=== PATIENT | female | born 1985 | race Caucasian/White ===

== ENCOUNTER 2019-03-10 17:20 | Inpatient (IN) | payer BC, OTHER ==
[2019-03-10] MEDS ORDERED: OXYTOCIN 20 UNITS in 0.9% NS 20 UNIT/1,000 ML INFUS.BAG IV ONE ×2 (20:14→22:08)
[2019-03-10] MEDS ORDERED: LIDOCAINE HCL 1% PRESERVATIVE FREE - 30ML VIAL ONE (20:31)
--- NOTE | 2019-03-10 20:46 | HP ---
Past Medical History - Admission History of Present Illness: 33 yo @ 37 4/7 wks by first trimester ultrasound, EDC 03/27/2019 complicated by: 1. Preeclampsia in prior with induction at 35 weeks On ASA this Normal BPs this 2. AMA - reassuring NIPT, NT and AFP 3. Varicella non-immune Patient presents with chief complaint of contractions that started at 1020 this AM. She was seen in the office and found to be 3 cm dilated. She reports movement, denies leakage of fluid or vaginal bleeding. History Source: Patient Limitations to Obtaining History: No Limitations - Past Medical History Cardiovascular: No: HTN Pulmonary: No: Asthma ...: 3 ...Para: 1 ...Term: 0 ...: 0 ...Spon : 0 ...Induced : 1 ...LMP: 06/22/18 ... Weeks Gestation by Dates: 37.2 ...EDC by Dates: 03/29/19 ...EDC by Sono: 03/29/19 - Past Surgical History Past Surgical History: Yes: None Hx Myomectomy: No Hx Transabdominal Cerclage: No - Smoking History Smoking history: Never smoked Have you smoked in the past 12 months: No - Alcohol/Substance Use Hx Alcohol Use: No - Social History History of Recent Travel: No Home Medications - Allergies Allergies/Adverse Reactions: Allergies Allergy/AdvReac Type Severity Reaction Status Date / Time No Known Allergies Allergy Verified 03/10/19 18:23 - Home Medications Home Medications: Ambulatory Orders Vit/Iron Fum/Folic AC [ Tablet] 1 tablet PO DAILY 07/11/15 Aspirin [Children's Aspirin] 81 mg PO DAILY 03/10/19 Family Medical History Family History: Denies Review of Systems - Review of Systems Constitutional: reports: No Symptoms Cardiovascular: reports: No Symptoms Respiratory: reports: No Symptoms Gastrointestinal: reports: No Symptoms Genitourinary: reports: No Symptoms Musculoskeletal: reports: No Symptoms Integumentary: reports: No Symptoms Neurological: reports: No Symptoms Hematology/Lymphatic: reports: No Symptoms Psychiatric: reports: No Symptoms Physical Exam - Maternity Vital Signs: Vital Signs Temperature 98.2 F 03/10/19 18:10 Pulse Rate 82 03/10/19 18:10 Respiratory Rate 18 03/10/19 18:10 Blood Pressure 120/74 03/10/19 18:10 O2 Sat by Pulse Oximetry (%) Constitutional: Yes: Well Nourished, No Distress, Calm Lungs: Clear to auscultation - Abdominal Exam/OB Number of Fetuses: Single Presentation: Vertex Contractions: Yes Regularity: Regular Category: I - Physical Exam Psychiatric: Yes: Alert, Oriented - Labs Lab Results: PNL: A positive, antibody negative; RPR NR; HIV negative; HBsAg neg; HCV negative; GCT WNL; GBS negative Hemorrhage Risk Assessment - Risk Factors Medium Risk Factors: Yes: None High Risk Factors: Yes: None Risk Score: 1 Risk Level: Medium Risk Assessment/Plan 33 yo @ 37 wks active labor 1. Admit to L&D, consents reviewed and signed 2. Routine labs collected and sent 3. GBS negative 4. Will proceed with expectant management
[2019-03-10] MEDS ORDERED: ACETAMINOPHEN 325 MG TABLET (FP) ONE (21:00)
[2019-03-10] MEDS ORDERED: IBUPROFEN 600 MG TABLET (FP) PO ONE (21:01)
[2019-03-10] MEDS: IBUPROFEN 600 MG TABLET (FP) PO PRN (21:10)
[2019-03-10] MEDS: ACETAMINOPHEN 325 MG TABLET (FP) PO PRN (21:10)
--- NOTE | 2019-03-10 21:13 | PN ---
Delivery - Delivery Vaginal Delivery: No Problems Type of Anesthesia: None Episiotomy/Laceration: 1st degree EBL (cc): 300 Delivery, Single - Stages of Labor Date 1st Stage Initiatied: 03/10/19 Time 1st Stage Initiated: 10:20 Date 2nd Stage Initiated: 03/10/19 Time 2nd Stage Initiated: 20:15 Date of Delivery: 03/10/19 Time of Delivery: 20:28 Date Placenta Delivered: 03/10/19 Time Placenta Delivered: 20:40 Placenta: Yes: Spontaneous - Condition of Infant Gender: Female Position: Left, OA Total Hours ROM (Hrs/Mins): 25 minutes - 1 Minute Total Score: 9 5 Minutes Total Score: 9 Remarks - Remarks Remarks: Patient progressed to fully dilated and at 2027 via delivered a viable female infant in SUSAN position, APGARs 9,9. Weight and length unknown at this time. Head delivered spontaneously followed by shoulders and body without difficulty. Infant with spontaneous cry and placed on mother's abdomen. Nose and mouth was bulb suctioned. Cord was clamped and cut. Perineum and vagina examined, a first degree laceration was noted and repaired in the usual fashion. Placenta was delivered spontaneously and intact. 20 units of pitocin in 1 L IVF was given. All counts correct x 2. Mother and infant stable in LDR. EBL 300cc.
[2019-03-10] MEDS ORDERED: BISACODYL 10 MG SUPP.RECT RC PRN (21:14)
[2019-03-10] MEDS ORDERED: METHYLERGONOVINE MALEATE 0.2 MG/1 ML AMP IM PRN (21:14)
[2019-03-10] MEDS ORDERED: WITCH HAZEL 50% (TUCKS) 40 PAD/JAR PAD TP PRN (21:14)
[2019-03-10] MEDS ORDERED: BENZOCAINE 28 GM HEMORRHOIDAL OINTMENT TP PRN (21:14)
[2019-03-10] MEDS ORDERED: BENZOCAINE 20% 57 GM BOTTLE TP PRN (21:14)
[2019-03-10] MEDS ORDERED: OXYTOCIN 20 UNITS in 0.9% NS 20 UNIT/1,000 ML INFUS.BAG IV SCH (21:15)
[2019-03-10 21:28] LABS: BASO % 0.1 % (0-2.0); EOS % 0.2 % (0-4.5); HEMATOCRIT 30.6 % (32.4-45.2); HEMOGLOBIN 9.9 GM/dL (10.7-15.3); MCH 27.5 pg (25.7-33.7); MCHC 32.4 g/dl (32.0-36.0); MEAN CELL VOLUME 85.1 fl (80-96); MEAN PLT VOLUME 9.3 fl (7.5-11.1); MONO % 4.6 % (3.8-10.2); NEUT % 84.1 % (42.8-82.8); PLATELET COUNT 208 K/MM3 (134-434); RDW 13.3 % (11.6-15.6); WHITE BLOOD COUNT 13.1 K/mm3 (4.0-10.0)
[2019-03-10 21:35] VITALS: BMI 29.2
[2019-03-10 21:45] LABS: BLOOD UREA NITROGEN 5.3 mg/dL (7-18); CALCIUM 8.1 mg/dL (8.5-10.1); CREATININE 0.8 mg/dL (0.55-1.3); POTASSIUM 3.2 mmol/L (3.5-5.1)
[2019-03-10 21:54] LABS: INR 1.01 (0.83-1.09); PROTHROMBIN TIME (PATIENT) 11.9 SEC (9.7-13.0)
[2019-03-10 21:57] LABS: ACTIVATED PTT 24.9 SECONDS (25.2-36.5)
--- NOTE | 2019-03-11 07:39 | PN ---
Post Progress Note - Subjective Subjective: Patient without acute complaints. Reports tolerating oral intake without nausea or vomiting. Ambulating without dizziness. Denies fevers or chills. Pain well controlled with oral pain medication. without difficulty. Passing flatus. Post Day: 1 Type of Delivery: Vital Signs: Vital Signs Temperature 98.4 F 03/11/19 06:00 Pulse Rate 70 03/11/19 06:00 Respiratory Rate 20 03/11/19 06:00 Blood Pressure 110/77 03/11/19 06:00 O2 Sat by Pulse Oximetry (%) Breast Exam: Yes: Soft Uterus: Yes: Fundus Firm, Fundus below umbilicus Abdomen/GI: Yes: Abdomen soft, Abdominal Distention, Passing flatus, Tolerating PO. No: Tender Lochia: Yes: Rubra Lochia, amount: Moderate Extremities: Yes: Calves non-tender, Edema (trace) Activity: Ambulating - Labs Labs: CBC WBC 13.1 K/mm3 (4.0-10.0) H 03/10/19 21:05 RBC 3.60 M/mm3 (3.60-5.2) 03/10/19 21:05 Hgb 9.9 GM/dL (10.7-15.3) L 03/10/19 21:05 Hct 30.6 % (32.4-45.2) L D 03/10/19 21:05 MCV 85.1 fl (80-96) 03/10/19 21:05 MCH 27.5 pg (25.7-33.7) D 03/10/19 21:05 MCHC 32.4 g/dl (32.0-36.0) 03/10/19 21:05 RDW 13.3 % (11.6-15.6) 03/10/19 21:05 Plt Count 208 K/MM3 (134-434) D 03/10/19 21:05 MPV 9.3 fl (7.5-11.1) D 03/10/19 21:05 Absolute Neuts (auto) 11.0 K/mm3 (1.5-8.0) H 03/10/19 21:05 Neutrophils % 84.1 % (42.8-82.8) H 03/10/19 21:05 Lymphocytes % 11.0 % (8-40) D 03/10/19 21:05 Monocytes % 4.6 % (3.8-10.2) 03/10/19 21:05 Eosinophils % 0.2 % (0-4.5) 03/10/19 21:05 Basophils % 0.1 % (0-2.0) 03/10/19 21:05 Nucleated RBC % 0 % (0-0) 03/10/19 21:05 Assessment/Plan 33 yo PPD # 1 s/p , afebrile, vital signs stable, doing well 1. Continue routine care. 2. Follow up AM CBC 3. Rh positive status, no rhogam indicated. 4. Encourage ambulation 5. Continue oral pain medication 6. Anticipate discharge home day #2
--- NOTE | 2019-03-11 07:41 | DS ---
Physical Exam-ADMISSIONS SPECIALIST Vital Signs: Vital Signs Temperature 98.4 F 03/11/19 06:00 Pulse Rate 70 03/11/19 06:00 Respiratory Rate 20 03/11/19 06:00 Blood Pressure 110/77 03/11/19 06:00 O2 Sat by Pulse Oximetry (%) Labs: CBC, BMP 03/10/19 21:05 03/10/19 21:05 Delivery - Delivery Vaginal Delivery: No Problems Type of Anesthesia: Local Episiotomy/Laceration: 1st degree EBL (cc): 300 Delivery, Single - Stages of Labor Date 1st Stage Initiatied: 03/10/19 Time 1st Stage Initiated: 10:20 Date 2nd Stage Initiated: 03/10/19 Time 2nd Stage Initiated: 20:15 Date of Delivery: 03/10/19 Time of Delivery: 20:28 Time Placenta Delivered: 20:40 Placenta: Yes: Spontaneous - 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 Present: No Infant Gender: Female Weight: 7 lb 4 oz Position: Left, OA Total Hours ROM (Hrs/Mins): 25 minutes - 1 Minute Total Score: 9 5 Minutes Total Score: 9 - [place] Feeding Plan Initial Plan: Exclusive throughout hospitalization Discharge Summary Problems reviewed: Yes Reason For Visit: LABOR Procedures: Principal: Vaginal delivery Hospital Course: Patient admitted in active labor, pushed to deliver viable female patient fulfilled all criteria for discharge home PPD # 2 Condition: Good - Instructions Referrals: Rell Henderson MD [Staff Physician] - Disposition: HOME - Home Medications Comprehensive Discharge Medication List: Ambulatory Orders Vit/Iron Fum/Folic AC [ Tablet] 1 tablet PO DAILY 07/11/15 Aspirin [Children's Aspirin] 81 mg PO DAILY 03/10/19
[2019-03-11 08:45] LABS: BASO % 0.3 % (0-2.0); EOS % 0.2 % (0-4.5); HEMATOCRIT 29.1 % (32.4-45.2); HEMOGLOBIN 9.7 GM/dL (10.7-15.3); LYMPH % 13.6 % (8-40); MCHC 33.2 g/dl (32.0-36.0); MEAN CELL VOLUME 84.2 fl (80-96); MEAN PLT VOLUME 9.3 fl (7.5-11.1); MONO % 6.4 % (3.8-10.2); NEUT % 79.5 % (42.8-82.8); PLATELET COUNT 215 K/MM3 (134-434); RBC 3.45 M/mm3 (3.60-5.2); RDW 13.4 % (11.6-15.6); WHITE BLOOD COUNT 13.3 K/mm3 (4.0-10.0)
[2019-03-11] MEDS: ACETAMINOPHEN 325 MG TABLET (FP) PO PRN ×2 (16:50→22:03)
[2019-03-11] MEDS: IBUPROFEN 600 MG TABLET (FP) PO PRN ×2 (16:51→22:03)
[2019-03-11] MEDS ORDERED: SENNOSIDES/DOCUSATE COMBO (SENNA PLUS) TABLET (UD) PO PRN (22:00)
--- NOTE | 2019-03-12 08:17 | DS ---
Physical Exam-DENTURE PROCESSOR Vital Signs: Vital Signs Temperature 97.7 F 03/11/19 21:43 Pulse Rate 69 03/11/19 21:43 Respiratory Rate 18 03/11/19 21:43 Blood Pressure 111/74 03/11/19 21:43 O2 Sat by Pulse Oximetry (%) Constitutional: Yes: Well Nourished, No Distress, Calm Eyes: Yes: WNL, Conjunctiva Clear, EOM Intact HENT: Yes: WNL, Atraumatic, Normocephalic Neck: Yes: WNL, Supple, Trachea Midline Cardiovascular: Yes: WNL, Regular Rate and Rhythm Respiratory: Yes: WNL, Regular, CTA Bilaterally Gastrointestinal: Yes: WNL ...Rectal Exam: Yes: WNL Renal/: Yes: WNL ....Post : Yes: Uterus firm, Uterus non-tender, Slight lochia rubra Breast(s): Yes: WNL Musculoskeletal: Yes: WNL Extremities: Yes: WNL Edema: No Integumentary: Yes: WNL Neurological: Yes: WNL, Alert, Oriented ...Motor Strength: WNL Psychiatric: Yes: WNL, Alert, Oriented Labs: CBC, BMP 03/11/19 07:20 03/10/19 21:05 Delivery - Delivery Vaginal Delivery: No Problems Type of Anesthesia: Local Episiotomy/Laceration: 1st degree EBL (cc): 300 Delivery, Single - Stages of Labor Date 1st Stage Initiatied: 03/10/19 Time 1st Stage Initiated: 10:20 Date 2nd Stage Initiated: 03/10/19 Time 2nd Stage Initiated: 20:15 Date of Delivery: 03/10/19 Time of Delivery: 20:28 Time Placenta Delivered: 20:40 Placenta: Yes: Spontaneous - Condition of Project Management Intern/Hand Binder Stripper Present: No Infant Gender: Female Weight: 7 lb 4 oz Position: Left, OA Total Hours ROM (Hrs/Mins): 25 minutes - 1 Minute Total Score: 9 5 Minutes Total Score: 9 - [place] Feeding Plan Initial Plan: Exclusive throughout hospitalization Discharge Summary Problems reviewed: Yes Reason For Visit: LABOR Current Active Problems Vaginal delivery (Acute) Procedures: Principal: Hospital Course: Patient admitted in active labor, pushed to deliver viable female infant patient fulfilled all criteria for discharge home PPD # 2 Condition: Good - Instructions Diet, Activity, Other Instructions: regular diet, follow uo office 4 weeks, if fever, heavy bleeding, pain call md Referrals: Rell Henderson MD [Staff Physician] - Disposition: HOME - Home Medications Comprehensive Discharge Medication List: Ambulatory Orders Vit/Iron Fum/Folic AC [ Tablet] 1 tablet PO DAILY 07/11/15 Aspirin [Children's Aspirin] 81 mg PO DAILY 03/10/19 Ibuprofen [Motrin -] 600 mg PO TID #21 tablet 03/11/19
[2019-03-12 09:16] VITALS: BP 112/76; PULSE 84; TEMP 98
[2019-03-12] MEDS: ACETAMINOPHEN 325 MG TABLET (FP) PO PRN (09:46)
[2019-03-12] MEDS: IBUPROFEN 600 MG TABLET (FP) PO PRN (09:46)
== END 2019-03-12 11:30 | disposition home or self-care (01) | DRG 807 ==
LOC: JDEL 17:20 → JLDR 20:00 → J3W 03-11 12:55
PROVIDERS: ADMIT Obstetrics & Gynecology; ATTEND Obstetrics & Gynecology
PROC: 10E0XZZ Delivery of Products of Conception, External Approach (ICD-10-PCS; principal; 2019-03-10)
PROC: 0HQ9XZZ Repair Perineum Skin, External Approach (ICD-10-PCS; 2019-03-10)
PROC: 0W8NXZZ Division of Female Perineum, External Approach (ICD-10-PCS; 2019-03-10)
DX: O70.0 First degree perineal laceration during delivery (principal); Z37.0 Single live birth; Z3A.37 37 weeks gestation of pregnancy
CPT/HCPCS: 36415; 59409; 80048; 85025; 85610; 85730; 86593; 86850; 86900; 86901